=== PATIENT | female | born 1950 | race Two or more races ===

== ENCOUNTER 2018-07-29 15:49 | Emergency (ER) | payer MEDICAID ==
[~2018-07-29] VITALS: Ht 154.9 cm; Wt 66.0 kg
[2018-07-29 16:05] VITALS: BP 161/72
== END 2018-07-29 18:16 | disposition left against medical advice (07) ==
LOC: ER 15:49
DX: Z53.21 Procedure and treatment not carried out due to patient leaving prior to being seen by health care provider (principal)

== ENCOUNTER 2024-06-18 02:01 | Emergency (ER) | payer MEDICAID, OTHER ==
[~2024-06-18] VITALS: Ht 154.9 cm; Wt 65.0 kg
[~2024-06-18 02:01] MED LIST: LEVO-65 MT; LISI40TA13 MT; MECL-217 MT; OMEP20CA14 MT; SULF1TAB48 MT
[2024-06-18 02:21] VITALS: O2SAT 98
[2024-06-18] MEDS: ACETAMINOPHEN 1000MG/100ML 100 ML IV ONE (04:15)
[2024-06-18 04:43] LABS: CLARITY URINE CLEAR (CLEAR); COLOR URINE YELLOW (YELLOW); GLUCOSE URINE NEGATIVE (NEGATIVE); KETONES URINE NEGATIVE (NEGATIVE); LEUKOCYTE ESTERASE URINE TRACE (NEGATIVE); NITRITE URINE NEGATIVE (NEGATIVE); OCCULT BLOOD URINE NEGATIVE (NEGATIVE); PROTEIN URINE NEGATIVE (NEGATIVE); SPECIFIC GRAVITY URINE 1.008 (1.005-1.030); UROBILINOGEN URINE 0.2 E.U./dL (0.2-1.0)
[2024-06-18 04:55] LABS: BASOPHILS % 1.2 % (0.0-2.0); DIFFERENTIAL COMMENT 0; EOSINOPHILS % 13.1 % (0.0-5.0); HEMATOCRIT. 25.3 % (36.0-48.0); LYMPHOCYTES % 20.8 % (20.0-50.0); MEAN CORPUSCULAR HEMOGLOBIN 24.5 pg (28.0-32.0); MEAN CORPUSCULAR HGB CONC 31.8 g/dL (31.0-37.0); MEAN CORPUSCULAR VOLUME 77.1 fL (81.0-99.0); MEAN PLATELET VOLUME 9.3 fl (7.4-10.4); MONOCYTES % 10.1 % (2.0-8.0); NEUTROPHILS % 54.8 % (40.0-76.0); PLATELET 56 x1000/uL (130-400); RED BLOOD CELL COUNT 3.28 mill/uL (4.2-5.4); WHITE BLOOD COUNT 5.8 x1000/uL (4.5-11.0)
[2024-06-18 05:03] LABS: CARBON DIOXIDE 24 mEq/L (21-32); CHLORIDE 107 mEq/L (98-107); POTASSIUM 4.8 mEq/L (3.5-5.1); SODIUM 138 mEq/L (136-145)
[2024-06-18 05:08] VITALS: BP 153/52; PULSE 76; RESP 15; TEMP 36.6; O2SAT 99
[2024-06-18 05:08] LABS: CREATININE 0.6 mg/dL (0.6-1.0)
[2024-06-18 05:09] LABS: GLUCOSE 138 mg/dL (70-105); UREA NITROGEN BLOOD 16 mg/dL (9-23)
[2024-06-18 05:10] LABS: ALANINE AMINOTRANSFERASE 32 IU/L (10-49); ALBUMIN 2.9 g/dL (3.2-4.8); ASPARTATE AMINOTRANSFERASE 61 IU/L (<34)
[2024-06-18 05:11] LABS: BILIRUBIN TOTAL 2.7 mg/dL (0.1-1.0); PROTEIN TOTAL 6.6 g/dL (6.0-8.3)
[2024-06-18 05:34] LABS: WBC URINE 0-2 /hpf (0-2)
[2024-06-18 05:35] LABS: RBC URINE 0-2 /hpf (0-2); SQUAMOUS EPITHELIAL CELL URINE NONE SEEN /lpf (RARE/1+)
[2024-06-18 05:36] LABS: BACTERIA URINE NONE SEEN
[2024-06-18] MEDS: IOHEXOL-300 100 ML BOTTLE ONE (05:49)
[2024-06-18] MEDS ORDERED: ACET-2708 MT (07:24)
== END 2024-06-18 07:58 | disposition home or self-care (01) ==
LOC: ER 02:01
DX: R10.2 Pelvic and perineal pain (principal); K74.60 Unspecified cirrhosis of liver; E11.9 Type 2 diabetes mellitus without complications; E78.00 Pure hypercholesterolemia, unspecified; I10 Essential (primary) hypertension; Z79.899 Other long term (current) drug therapy; Z88.0 Allergy status to penicillin; Z90.49 Acquired absence of other specified parts of digestive tract
CPT/HCPCS: 99285; 74177; 96374; 80053; 81003; 83690; 85025; 36415; Q9967; J0131